=== PATIENT | female | born 1965 | race African-American/Black ===

== ENCOUNTER 2016-09-03 17:57 | Emergency (ER) | payer MEDICARE, MEDICAID ==
[2016-09-03] MEDS ORDERED: HYDROcodone/Acetaminophen 5/325 mg Tablet ONE (18:51)
--- NOTE | 2016-09-03 19:10 | PICIS ---
[facility] EMERGENCY RECORD TRIAGE (18:18 EPIE) TRIAGE NOTES: Pt reports bilateral hand pain (burning and stinging) starting 2 weeks ago. (18:18 EPIE) PATIENT: NAME: Sarmad Perla, AGE: 51, GENDER: female, : Fri1965, TIME OF GREET: FriSep 03, 2016 17:58, PREFERRED LANGUAGE: Malian, ETHNICITY: Not or , ECODE BILLING MAP: [facility], SSN: [id number], Zip Code: [address], KG WEIGHT: 111.13, PHONE: , , , PERSON ID: [id number], PCP: Collins Graf /Adalberto. (18:18 EPIE) COMPLAINT: BILATERAL HAND BURNING AND TINGLING. (18:18 EPIE) ADMISSION: URGENCY: 3 Urgent, ADMISSION SOURCE: Home, TRANSPORT: CAR, BED: TRIAGE. (18:18 EPIE) TRIAGE SCREENING: Patient denies suicidal ideation, Patient denies presence of domestic violence. (18:21 EPIE) TREATMENTS IN PROGRESS: Treatments given Prehospital: none. (18:21 EPIE) PROVIDERS: TRIAGE NURSE: An Ballesteros RN. (18:18 EPIE) VITAL SIGNS: BP 136/77, Pulse 68, Resp 24, Temp 98.4, (Oral), O2 Sat 93, on 3L Oxygen, Time 09/03/2016 18:13. (18:13 EPIE) KNOWN ALLERGIES carbamazepine: Reaction: Anxiety ketamine: Reaction: Anxiety Penicillins: Reaction: Short of Breath CURRENT MEDICATIONS amLODIPine: TABLET : Strength - 10 mg : ORAL Patient Dose: 1 tab(s) Oral once a day. (18:21 EPIE) carvedilol: TABLET : Strength - 25 mg : ORAL Patient Dose: 3.125 tab(s) Oral 2 times a day. (18:21 EPIE) aspirin: TABLET : Strength - 81 mg : ORAL Patient Dose: 81 mg Oral once a day. (18:22 EPIE) Lasix: TABLET : Strength - 40 mg : ORAL Patient Dose: 40 mg Oral once a day. (18:22 EPIE) hydrALAZINE: TABLET : Strength - 25 mg : ORAL Patient Dose: 25 mg Oral 3 times a day. (18:23 EPIE) VITAL SIGNS (18:13 EPIE) VITAL SIGNS: BP: 136/77, Pulse: 68, Resp: 24, Temp: 98.4 (Oral), O2 sat: 93 on 3L Oxygen, Time: 09/03/2016 18:13. NURSING ASSESSMENT: EXTREMITY UPPER (18:48 EPIE) CONSTITUTIONAL: Patient arrives ambulatory, Unsteady gait, Assistance to cart, History obtained from &a-1R&a+25V*p+0X*[id number]*c202B*c15G*c2P*p-0X&a-25V&a+1R Name: Sarmad Perla : 1965 F51 MedRec: [id number] AcctNum: [id number] Prepared: FriSep 03, 2016 19:19 by Interface Page 1 of 6 pMD [facility] EMERGENCY RECORD patient, Patient appears, uncomfortable, Patient cooperative, Patient alert, Oriented to person, place and time, Skin warm, Skin dry, Skin normal in color, Mucous membranes pink, Mucous membranes moist, Patient is well-groomed, Pt reports bilateral hand pain (burning and stinging) starting 2 weeks ago. PAIN: burning pain, bilateral hand pain, Onset of pain 09/03/2016, intermittent, on a scale 0-10 patient rates pain as 9. LEFT UPPER EXTREMITY: Left upper extremity assessment findings include capillary refill less than 2 seconds, Skin color normal to hand, Skin temperature to hand warm, Distal sensation intact, Muscle tone normal, Notes: fistula to wrist. RIGHT UPPER EXTREMITY: Right upper extremity assessment findings include capillary refill less than 2 seconds, Skin color normal to hand, Skin temperature to hand warm, Distal sensation intact, Muscle tone normal. NURSING PROCEDURE: DISCHARGE NOTE (19:06 EPIE) DISCHARGE: Patient discharged to home, ambulating with assistance, family driving, accompanied by other family member, Summary of Care printed/ provided, Discharge instructions given to patient, Simple or moderate discharge teaching performed, Prescriptions given and instructions on side effects given, Name of prescription(s) given: tylenol-codeine #3, Above person(s) verbalized understanding of discharge instructions and follow-up care. BELONGINGS: Belongings and valuables with patient upon arrival to the Emergency Department include:, Belongings and valuables with patient at time of discharge include:, Belongings remain with patient, Valuables remain with patient. MEDICATION ADMINISTRATION SUMMARY Drug Name: Laura, Dose Ordered: 5 mg, Route: Oral, Status: Given, Time: 18:53 09/03/2016, Detailed record available in Medication Service section. MEDICATION SERVICE (18:53 AGRE) Laura: Order: Laura (hydrocodone bitartrate/acetaminophen) - Dose: 5 mg : Oral Ordered by: Ayan Grant MD Entered by: Ayan Grant MD FriSep 03, 2016 18:44 , Acknowledged by: An Ballesteros RN FriSep 03, 2016 18:50 Documented as given by: An Ballesteros RN FriSep 03, 2016 18:53 Patient, Medication, Dose, Route and Time verified prior to administration. Amount given: 5/325mg, Site: Medication administered P.O., Correct patient, time, route, dose and medication confirmed prior to administration, Patient advised of actions and side-effects prior to administration, Allergies confirmed and medications reviewed prior to administration. &a-1R&a+25V*p+0X*[id number]*c202B*c15G*c2P*p-0X&a-25V&a+1R Name: Sarmad Perla : 1965 F51 MedRec: [id number] AcctNum: [id number] Prepared: FriSep 03, 2016 19:19 by Interface Page 2 of 6 pMD [facility] EMERGENCY RECORD HPI HAND (18:47 AGRE) CHIEF COMPLAINT: Patient presents for evaluation of pain, to bilateral hands. HISTORIAN: History provided by patient, BURNING, PAIN, CRAMPING OF BOTH HANDS FOR 4 MONTHS OFF AND ON BUT WORST FOR 2 WEEKS. EVERY TIME SHE GOES TO DIALYSIS IT GETS WORST. SAYS THE PAIN STARTED LAST NIGHT AND SHE WAS UNABLE TO SLEEP. WENT TO DIALYSIS TODAY AND SHE SAYS IT WAS WORST. THEY [facility] AND TOLD HER THAT HER POTASSIUM AND CALCIUM WERE NORMAL. DENIES NECK PAIN, INJURIES. SAYS WENT TO THE [facility] AND THEY CHECKED HER SHUNT AND TOLD HER THAT THE SYMPTOMS ARE NOT RELATED TO THE ARM SHUNTS. SAYS THE SYMPTOMS ARE IN ALL OF THE FINGERTIPS OF BOTH HANDS. DENIES CHEST PAIN OR SOB. NO PAIN IN THE AXILLAE OR ELBOW REGION. MECHANISM OF INJURY: Unknown mechanism. LOCATION: Symptoms are localized, most severe in the volar surface of the hand. QUALITY: Pain is dull in nature, described as cramping, described as tingling, described as BURNING. SEVERITY: Maximum severity of symptoms severe, Currently symptoms are moderate. TIME COURSE: Gradual onset of symptoms, Symptoms are worsening. ASSOCIATED WITH: No associated decreased use, No associated distal injury, No associated erythema, Associated with finger pain, intermittent, No associated weakness distal to injury, No associated wrist pain, Denies any other complaints. EXACERBATED BY: Patient's condition exacerbated by nothing. RELIEVED BY: Patient's condition relieved by nothing. ROS (18:50 AGRE) CONSTITUTIONAL: Historian denies chills, denies fever, denies lethargy, denies malaise. EYES: Historian denies eye pain, denies eye redness. ENT: Historian denies rhinorrhea, denies sinus pain, denies sore throat. CARDIOVASCULAR: Historian denies chest pain, denies dyspnea on exertion. RESPIRATORY: Historian denies cough, denies shortness of breath. GI: Historian denies abdominal pain, denies nausea, denies vomiting. MUSCULOSKELETAL: Historian denies back pain, denies neck pain. SKIN: Negative skin review of systems, Historian denies skin changes, denies skin lesions. NEUROLOGIC: Historian denies headache, denies mental status changes. PSYCHIATRIC: Negative psychiatric review of systems, Historian denies anxiety. PAST MEDICAL HISTORY (18:21 EPIE) MEDICAL HISTORY: Flu vaccine up to date, Tetanus &a-1R&a+25V*p+0X*m6050E*c202B*c15G*c2P*p-0X&a-25V&a+1R Name: Sarmad Perla : 1965 F51 MedRec: [id number] AcctNum: [id number] Prepared: FriSep 03, 2016 19:19 by Interface Page 3 of 6 pMD [facility] EMERGENCY RECORD immunization up to date, Pneumococcal vaccine up to date, Past medical history includes renal disease, failure on hemodialysis- . Thur. and Sat. Past medical history includes history of diabetes, Type II, history of hypertension, which has been treated, includes pulmonary disease, chronic obstructive pulmonary disease, R hip fx and R 7th and 8th rib fx on 09-06-15. FEMALE SURGICAL HISTORY: Dialysis fistula left arm.right leg surgery. PSYCHIATRIC HISTORY: no history of suicidal ideations, Psychiatric history includes, anxiety. SOCIAL HISTORY: Lives at home. Patient denies alcohol use, Patient denies drug use, Patient is a former tobacco user, smoked cigarettes, Patient quit smoking less than 10 years ago (quit 2012), Lives at home, with friend. FAMILY HISTORY: Family history is not significant. PHYSICAL EXAM (18:51 AGRE) CONSTITUTIONAL: Vital signs reviewed, Patient afebrile, Patient appears non toxic, Patient appears pain free, Patient alert and oriented to person, place and time, NURSES NOTES REVIEWED. HEAD: Head exam included findings of head atraumatic, normocephalic. EYES: Eye exam included findings of eyelids normal to inspection, Extraocular muscles intact, Conjunctiva normal, Sclera normal. ENT: Ear exam normal, Nose exam normal, Mouth exam normal. NECK: Neck exam included findings of normal range of motion, no meningeal signs, no cervical adenopathy, no tenderness, no abrasions, no contusions, no ecchymosis. RESPIRATORY CHEST: Respiratory exam included findings of no respiratory distress, Chest exam included findings of chest movement symmetrical. BACK: Back exam included findings of normal inspection, range of motion normal. UPPER EXTREMITY: Upper extremity exam included findings of inspection normal, Range of motion normal. PAIN TO LIGHT TOUCH OF ALL THE FINGER TIPS OF BOTH HANDS. PATIENT SAYS IT MAKES THEM BURN AND HURT. GOOD CAPILLARY REFILL OF ALL FINGERS, GOOD RADIAL AND ULNA PULSES BILATERALLY, NO RASH, SKIN INTACT, NO BONY DEFORMITY OR TENDERNESS. REMAINDER OF EXAM OF UPPER EXTREMITIES IS WNL. DIALYSIS SHUNT IN PLACE LEFT FOREARM, FUNCTIONING WELL. LOWER EXTREMITY: Lower extremity exam included findings of inspection normal, Range of motion normal. NEURO: Neuro exam findings include patient oriented to person, place and time, Speech normal, Gait normal, Memory normal, Cranial nerves intact, no focal motor deficits. SKIN: Skin exam included findings of skin warm, dry, and normal in color. PSYCHIATRIC: Psychiatric exam normal, Normal affect. EVENTS &a-1R&a+25V*p+0X*t7127E*c202B*c15G*c2P*p-0X&a-25V&a+1R Name: Sarmad Perla : 1965 F51 MedRec: [id number] AcctNum: [id number] Prepared: FriSep 03, 2016 19:19 by Interface Page 4 of 6 pMD [facility] EMERGENCY RECORD TRANSFER: Triage to Emergency Triage. (FriSep 03, 2016 18:18 EPIE) Emergency Triage to Emergency Room -05. (18:19 EPIE) Removed from Emergency Emergency Room -05. (19:13 EPIE) O2SAT INTERPRETATION (18:53 AGRE) O2SAT: Single pulse oximetry, Oxygen saturation 93%, on 2L, Oxygen saturation interpretation: Normal, Intervention required: Oxygen administration, PATIENT ON HOME OXYGEN CONSTANTLY. DOCTOR NOTES (18:53 AGRE) TEXT: DISCUSSED WITH PATIENT FINDINGS ON EXAM AND THAT THIS MAY BE DUE TO CERVICAL DISC DISEASE. ADVISED THAT SHE KEEPS HER APPOINTMENT WITH HER PCP NEXT WEEK TO START THE TEST NEEDED TO DIAGNOSE THIS PROBLEM AND FOR MANAGMENT. SHE EXPRESS UNDERSTANDING AND AGREEMENT. PATIENT STATUS: Patient has improved since arrival to emergency department. PATIENT PLAN: The patient will be discharged. PROBLEM LIST No recorded problems DIAGNOSIS (18:44 AGRE) FINAL: PRIMARY: NEUROPATHY. DISPOSITION PATIENT: Disposition Type: Discharge, Disposition: *Discharge Home, Condition: Improved. (18:44 AGRE) Patient left the department. (19:13 EPIE) INSTRUCTION (18:46 AGRE) DISCHARGE: NEUROPATHY, PERIPHERAL. FOLLOWUP: [facility], /[facility], [address] [place] [id number], . SPECIAL: FOLLOW UP WITH YOUR PRIMARY CARE PHYSICIAN TO ARRANGE FOR FURTHER EVALUATION AND MANAGMENT OF YOUR PAIN. PRESCRIPTION (18:45 AGRE) Tylenol-Codeine #3: TABLET : 300 mg-30 mg : ORAL : Quantity: 1-2 Unit: tab(s) Route: ORAL Schedule: every 4 to 6 hours Dispense: 30 May substitute. Refills: No Refills . NOTES: No Refills. IMAGING (19:12 EPIE) *DISCHARGE INSTRUCTIONS RECEIPT: Image captured from scanner. *SUPPLY CHARGE SHEET: Image captured from scanner. ADMIN &a-1R&a+25V*p+0X*l0863T*c202B*c15G*c2P*p-0X&a-25V&a+1R Name: Sarmad Perla : 1965 F51 MedRec: [id number] AcctNum: [id number] Prepared: FriSep 03, 2016 19:19 by Interface Page 5 of 6 pMD [facility] EMERGENCY RECORD DIGITAL SIGNATURE: MD Grant Andrea. (18:56 AGRE) MD Grant Andrea. (18:59 AGRE) Eason: AGRE=MD Grant Andrea EPIE=MICHAEL Ballesteros, An &a-1R&a+25V*p+0X*e0497M*c202B*c15G*c2P*p-0X&a-25V&a+1R Name: Sarmad Perla : 1965 1 MedRec: [id number] AcctNum: [id number] Prepared: FriSep 03, 2016 19:19 by Interface Page 6 of 6 pMD MTDD
== END 2016-09-03 19:06 | disposition home or self-care (01) ==
LOC: NAV ERS 17:57
DX: E11.40 Type 2 diabetes mellitus with diabetic neuropathy, unspecified (principal); I10 Essential (primary) hypertension; J44.9 Chronic obstructive pulmonary disease, unspecified; F41.9 Anxiety disorder, unspecified; Z87.891 Personal history of nicotine dependence; Z79.82 Long term (current) use of aspirin; Z79.899 Other long term (current) drug therapy
CPT/HCPCS: 99283

== ENCOUNTER 2017-08-31 16:39 | Emergency (ER) | payer MEDICARE, MEDICAID ==
[2017-08-31] MEDS ORDERED: traMADol HCl 50 MG TAB ONE (17:54)
[2017-08-31] MEDS ORDERED: predniSONE 20 MG TAB ONE (17:58)
[2017-08-31] MEDS ORDERED: predniSONE 10 MG TAB ONE (17:59)
== END 2017-08-31 18:25 | disposition home or self-care (01) ==
LOC: NAV ERS 16:39
DX: E11.41 Type 2 diabetes mellitus with diabetic mononeuropathy (principal); I10 Essential (primary) hypertension; J44.9 Chronic obstructive pulmonary disease, unspecified; F41.9 Anxiety disorder, unspecified; Z87.891 Personal history of nicotine dependence; Z79.899 Other long term (current) drug therapy; Z99.2 Dependence on renal dialysis
CPT/HCPCS: 99283; J7506; J7512

== ENCOUNTER 2017-10-04 13:14 | Emergency (ER) | payer MEDICARE, MEDICAID ==
[2017-10-04 13:56] LABS: #Basophils 0.1 thou/uL (0.0-0.2); #Eosinphils 0.1 thou/uL (0.0-0.7); #Lymphocytes 1.2 thou/uL (1.20-3.40); #Monocytes 0.5 thou/uL (0.11-0.59); #Neutrophils 5.4 thou/uL (1.40-6.50); %Basophils 1.4 % (0.0-1.0); %Eosinophils 1.1 % (0.0-10.0); %Lymphocytes 16.8 % (21.0-51.0); %Monocytes 7.1 % (0.0-10.0); %Neutrophils 73.7 % (42.0-75.0); Hemoglobin 9.9 g/dL (12.0-16.0); Mean Corpuscular HGB CONC 28.1 g/dL (32.0-36.0); Mean Corpuscular Hemoglobin 27.8 pg (27.0-31.0); Mean Corpuscular Volume 98.9 fl (81.0-99.0); Mean Platelet Volume 9.2 fL (7.4-10.4); Platelet Count 188 thou/uL (130-400); RBC Distribution Width 16.9 % (11.5-14.5); Red Blood Cell (RBC) Count 3.55 mill/uL (4.20-5.40); White Blood Cell (WBC) Count 7.3 thou/uL (4.8-10.8)
[2017-10-04 14:12] LABS: CKMB 1.1 ng/mL (0-6.6); Troponin I 0.016 ng/mL (< 0.028)
[2017-10-04 14:31] LABS: Hypochromia SLIGHT = 6-15 cells (100X) (0-5/hpf); MDiff Complete? YES; PLT Morphology Comment Appears Adequate
[2017-10-04 14:47] LABS: ALT (SGPT) Less than 6 U/L (8-55); AST (SGOT) 13 U/L (5-34); Albumin 3.3 g/dL (3.5-5.0); Alkaline Phosphatase 81 U/L (40-150); Anion Gap 17 mmol/L (10-20); BUN (Urea Nitrogen) 30 mg/dL (9.8-20.1); Bilirubin, Total 0.3 mg/dL (0.2-1.2); CK (CPK) 45 U/L (29-168); Calc. Creatinine Clearance 0 mL/min (70-130); Calcium 9.4 mg/dL (7.8-10.44); Carbon Dioxide 30 mmol/L (22-29); Chloride 93 mmol/L (98-107); Estimated GFR-MDRD 9; Globulin 5.6 g/dL (2.4-3.5); Glucose 183 mg/dL (70-105); Potassium 3.6 mmol/L (3.5-5.1); Protein, Total 8.9 g/dL (6.0-8.3); Sodium 136 mmol/L (136-145)
--- NOTE | 2017-10-04 15:42 | CT ---
CT BRAIN 10/04/17 PROVIDED CLINICAL HISTORY: Altered mental status. FINDINGS: Comparison is made with the study dated 09/14/15. The ventricular system appears normal in size and morphology. There is no evidence for intracranial h emorrhage or mass effect. Limitations in evaluating the middle cranial fossa an the posterior fossa d ue to image noise related to patient body habitus. There is an apparent focal area of diminished atte nuation involving the right cerebellar hemisphere which appears similar to the prior examination as c ompatible with remote lacunar infarction. The extracranial soft tissues and osseous structures demonstrate no acute abnormality. IMPRESSION: No evidence for intracranial hemorrhage or mass effect with limitations as above. POS: EHSAN
--- NOTE | 2017-10-04 15:46 | RAD ---
PORTABLE CHEST 10/04/17 PROVIDED CLINICAL HISTORY: Altered mental status. COMPARISON: 06/24/16. FINDINGS: Evaluation is extremely limited due to patient body habitus. Cardiac silhouette appears markedly enla rged. No gross focal consolidation, or pleural fluid evident. IMPRESSION: Limited study. POS: ZOE
== END 2017-10-04 18:09 | disposition short-term general hospital (02) ==
LOC: NAV ERS 13:14
DX: R41.82 Altered mental status, unspecified (principal); E11.9 Type 2 diabetes mellitus without complications; I10 Essential (primary) hypertension; J44.9 Chronic obstructive pulmonary disease, unspecified; F41.9 Anxiety disorder, unspecified; Z87.891 Personal history of nicotine dependence; Z79.899 Other long term (current) drug therapy; Z99.2 Dependence on renal dialysis
CPT/HCPCS: 51701; 70450; 71045; 80053; 82553; 83880; 84484; 85025; 93005; A4353